=== PATIENT | female | born 1990 | race Two or more races ===

== ENCOUNTER → 2017-08-20 | Outpatient (CLI) | payer BC | END | disposition home or self-care (01) | LOC: LAB 16:30 | DX: Z20.2 Contact with and (suspected) exposure to infections with a predominantly sexual mode of transmission (principal) | CPT/HCPCS: 86695; 86696 ==

== ENCOUNTER → 2017-09-06 | Outpatient (CLI) | payer BC ==
[2017-09-06 10:50] LABS: Albumin 4.1 g/dL (3.4-5.0); BUN/Creatinine Ratio 13.6; Bilirubin, Total 0.5 mg/dL (0.2-1.0); Calcium 9.3 mg/dL (8.5-10.1); Total Protein 8.7 g/dL (6.4-8.2)
[2017-09-06 11:09] LABS: Urine Bacteria FEW /hpf (None Seen); Urine Blood Negative /uL (Negative); Urine Mucus FEW (None Seen); Urine WBC 9 /hpf (0 - 5)
[2017-09-09 09:51] LABS: Hepatitis B Surface Antibody Positive
[2017-09-09 10:25] LABS: Hepatitis A Total Antibody Positive
[2017-09-09 12:09] LABS: Hepatitis B Core Total AB Negative
[2017-09-09 12:10] LABS: Hepatitis B Surface Antigen Negative (Negative); Hepatitis C Antibody Negative (Negative)
== END | disposition home or self-care (01) ==
LOC: LAB 08:49
DX: Z13.228 Encounter for screening for other metabolic disorders (principal); Z13.21 Encounter for screening for nutritional disorder; Z13.220 Encounter for screening for lipoid disorders; Z76.89 Persons encountering health services in other specified circumstances; Z83.49 Family history of other endocrine, nutritional and metabolic diseases; Z83.3 Family history of diabetes mellitus
CPT/HCPCS: 36415; 80053; 80061; 81001; 82306; 83036; 84443; 86703; 86704; 86706; 86708; 86803; 87086; 87340